=== PATIENT | female | born 2000 | race Two or more races ===

== ENCOUNTER 2022-04-03 03:33 | Inpatient (IN) | payer BC ==
[~2022-04-03] VITALS: Ht 198.1 cm; Wt 58.5 kg
[2022-04-03 07:09] LABS: HEMOGLOBIN. 13.4 g/dL (12.0-16.0); MEAN CORPUSCULAR HEMOGLOBIN 28.1 pg (28.0-32.0); MEAN CORPUSCULAR VOLUME 85.7 fL (81.0-99.0); MEAN PLATELET VOLUME 8.2 fl (7.4-10.4); PLATELET 294 x1000/uL (130-400); RED BLOOD CELL COUNT 4.78 mill/uL (4.2-5.4); RED CELL DISTRIBUTION WIDTH 12.8 % (11.6-14.6)
[2022-04-03 07:17] LABS: CHLORIDE 103 mEq/L (98-107)
[2022-04-03 07:33] LABS: PROTHROMBIN TIME 10.4 sec (9.6-11.0)
[2022-04-03 07:47] LABS: PLATELET ESTIMATE NORMAL
[2022-04-03] MEDS ORDERED: ONDANSETRON HCL 4MG/2ML INJ IV STA (08:02)
[2022-04-03] MEDS ORDERED: KETOROLAC 30MG/ML VIAL IV STA (08:02)
[2022-04-03] MEDS ORDERED: FAMOTIDINE 20MG/2ML VIAL IV STA (08:02)
[2022-04-03] MEDS ORDERED: SODIUM CHLORIDE 0.9% 1,000 ML IV ONE (08:15)
[2022-04-03 09:11] LABS: HCG SCREEN NEGATIVE
[2022-04-03 09:27] LABS: CLARITY URINE CLEAR (CLEAR); COLOR URINE DARK YELLOW (YELLOW); KETONES URINE TRACE (NEGATIVE); LEUKOCYTE ESTERASE URINE 1+ (NEGATIVE); NITRITE URINE NEGATIVE (NEGATIVE); OCCULT BLOOD URINE NEGATIVE (NEGATIVE); PH URINE 6.5 (4.5-8.0); PROTEIN URINE 1+ (NEGATIVE); SPECIFIC GRAVITY URINE 1.031 (1.005-1.030)
[2022-04-03] MEDS ORDERED: PIPERACILLIN/TAZ 3.375G PREMIX 50 ML IV ONE (10:15)
[2022-04-03] MEDS ORDERED: VANCOMYCIN 1G PREMIX 200 ML IV ONE (10:15)
[2022-04-03] MEDS ORDERED: DIPHENHYDRAMINE 50MG/ML VIAL IV ONE (11:00)
[2022-04-03] MEDS ORDERED: MORPHINE SULFATE 4 MG/ML CPJ (NOT FOR IM USE) IV ONE (11:15)
[2022-04-03] MEDS ORDERED: BUPIVACAINE HCL/PF 0.5% (5MG/ML) 30ML ONE (12:24)
[2022-04-03] MEDS ORDERED: SKIN ADHESIVE 0.7 GM EA TOP ONE (12:24)
[2022-04-03] MEDS ORDERED: PROPOFOL 200MG/20ML VIAL IV ONE (13:09)
[2022-04-03] MEDS ORDERED: FENTANYL CITRATE/PF 50MCG/ML 2ML VIAL ONE (13:09)
[2022-04-03] MEDS ORDERED: MIDAZOLAM HCL 2 MG/2 ML VIAL ONE (13:09)
[2022-04-03] MEDS ORDERED: ROCURONIUM BROMIDE 10MG/ML VIAL 5ML IV ONE (13:09)
[2022-04-03] MEDS ORDERED: HYDROMORPHONE HCL/PF 2MG/ML CPJ ONE (14:13)
[2022-04-03] MEDS ORDERED: NEOSTIGMINE METHYLSULFATE 1MG/ML 10 ML VIAL ONE (14:18)
[2022-04-03] MEDS ORDERED: GLYCOPYRROLATE 0.2 MG/ML 2ML VIAL ONE (14:18)
[2022-04-03] MEDS ORDERED: METOCLOPRAMIDE HCL 10MG/2ML VIAL ONE (14:29)
[2022-04-03] MEDS ORDERED: ONDANSETRON HCL 4MG/2ML INJ ONE (14:29)
[2022-04-03] MEDS ORDERED: DEXAMETHASONE 4MG/ML 1ML VIAL ONE (14:29)
[2022-04-03] MEDS ORDERED: KETOROLAC 30MG/ML VIAL ONE (14:29)
[2022-04-03] MEDS ORDERED: MEPERIDINE HCL/PF 25MG/ML CPJ IV PRN (15:00)
[2022-04-03] MEDS ORDERED: FENTANYL CITRATE/PF 50MCG/ML 2ML VIAL IV PRN (15:00)
[2022-04-03] MEDS ORDERED: ONDANSETRON HCL 4MG/2ML INJ IV PRN ×2 (15:00→15:30)
[2022-04-03] MEDS: HYDROMORPHONE HCL/PF 2MG/ML CPJ IV PRN ×3 (15:12→15:24)
[2022-04-03 16:00] VITALS: BP 129/78
[2022-04-03] MEDS ORDERED: NALOXONE HCL 0.4MG/ML VIAL IV PRN (16:00)
[2022-04-03] MEDS ORDERED: DEXT 5%/0.45% NACL KCL 20MEQ/L 1,000 ML IV ONE (16:30)
[2022-04-03] MEDS: MORPHINE SULFATE 2 MG/ML CPJ (NOT FOR IM USE) IV PRN ×3 (17:26→23:52)
[2022-04-03 18:00] VITALS: BP 140/86
[2022-04-03] MEDS: HYDROCODONE/ACETAMINOPHEN 5/325MG TABLET PO PRN (19:44)
[2022-04-03 20:00] VITALS: BP 127/75
[2022-04-03] MEDS: OMEPRAZOLE 20MG CAPSULE EXTENDED RELEASE PO SCH (20:36)
[2022-04-04] MEDS: HYDROCODONE/ACETAMINOPHEN 5/325MG TABLET PO PRN ×2 (06:22→13:44)
[2022-04-04 08:00] VITALS: BP 114/70
[2022-04-04] MEDS: OMEPRAZOLE 20MG CAPSULE EXTENDED RELEASE PO SCH (09:29)
[2022-04-04 12:00] VITALS: BP 110/77
[2022-04-04 14:19] VITALS: BP 110/70
== END 2022-04-04 14:45 | disposition home or self-care (01) | DRG 343 ==
LOC: ER 03:33 → EDBEDREQSVC 10:47 → EDBEDREQTM 10:47 → EDBEDREQ 10:47 → ER 12:00 → 6EST 17:12
PROVIDERS: ADMIT Internal Medicine; ATTEND Internal Medicine
PROC: 0DTJ4ZZ Resection of Appendix, Percutaneous Endoscopic Approach (ICD-10-PCS; principal; 2022-04-03)
DX: K35.80 Unspecified acute appendicitis (principal); Z20.822 Contact with and (suspected) exposure to COVID-19; Z83.3 Family history of diabetes mellitus
CPT/HCPCS: 36415; 71045; 73600; 74176; 80053; 81003; 83605; 84145; 84703; 85025; 87426; 88304; 99291; C9803; J1100; J1170; J1200; J1885; J2250; J2270; J2405; J2543; J2704; J2710; J2765; J3010; J3370; J3490; J7030